=== PATIENT | male | born 1965 | race Asian ===

== ENCOUNTER 2019-08-26 16:20 | Emergency (ER) | payer OTHER ==
[~2019-08-26] VITALS: Ht 175.3 cm; Wt 90.7 kg
[2019-08-26 16:25] VITALS: BP 144/88; TEMP 98.1
[2019-08-26 17:02] LABS: PLATELET COUNT 174 K/uL (142-355)
[2019-08-26 17:23] LABS: POTASSIUM 4.6 mmol/L (3.6-5.2)
[2019-08-26] MEDS ORDERED: TAMSULOSIN0.4 MG PO (17:24)
[2019-08-26] MEDS ORDERED: ESCITALOPRAM10 MG PO (17:24)
[2019-08-26] MEDS ORDERED: DIVALPROEX500 M1 PO (17:33)
[2019-08-26] MEDS ORDERED: RISP1TAB PO (17:34)
[2019-08-26] MEDS ORDERED: CREON24000 UNT PO (17:36)
[2019-08-26] MEDS ORDERED: LITH300C3 PO (17:38)
[2019-08-26] MEDS ORDERED: DONEPEZIL HYDRO10 M1 PO (17:39)
[2019-08-26] MEDS ORDERED: HALO5INJ3 IM (17:40)
== END 2019-08-26 17:00 | disposition other institution (70) ==
LOC: ED 16:28
PROVIDERS: Emergency Medicine
DX: Z00.8 Encounter for other general examination (principal); J18.9 Pneumonia, unspecified organism; J98.11 Atelectasis
CPT/HCPCS: 80053; 81000; 85027; 93005; 99285

== ENCOUNTER 2021-01-26 23:05 | Emergency (ER) | payer OTHER ==
[~2021-01-26] VITALS: Ht 180.3 cm; Wt 85.3 kg
[2021-01-26 23:05] VITALS: TEMP 98.2
[~2021-01-26 23:05] MED LIST: CHOL100034 PO; CREON24000 UNT PO; DIVA250T2 PO; DIVA500T2 PO; DIVALPROEX500 M1 PO; DONEPEZIL HYDRO10 M1 PO; ESCI10TA PO; ESCITALOPRAM10 MG PO; HALO5INJ3 IM; LITH300C3 PO; RISP1TAB PO; SCOP1.5D TOP; TAMSULOSIN0.4 MG PO
[2021-01-26 23:50] LABS: PLATELET COUNT 138 K/uL (142-355)
[2021-01-26 23:53] LABS: POTASSIUM 4.2 mmol/L (3.6-5.2)
[2021-01-27 00:07] VITALS: BP 132/84
[2021-01-27] MEDS ORDERED: DEPAKOTE DR PO ×3 (02:08→02:11)
[2021-01-27] MEDS ORDERED: RISPERDAL3 MG PO (02:15)
[2021-01-27] MEDS ORDERED: HALO5INJ3 IM (02:16)
[2021-01-27] MEDS ORDERED: ESCI10TA PO (02:20)
[2021-02-02] MEDS ORDERED: OLANZAPINE10 MG PO (09:16)
[2021-02-02] MEDS ORDERED: ESCI10TA PO (09:16)
[2021-02-02] MEDS ORDERED: DIVALPROEX500 MG PO (09:17)
[2021-02-02] MEDS ORDERED: DIVA250T PO (09:17)
== END 2021-01-27 00:07 | disposition other institution (70) ==
LOC: ED 23:05
PROVIDERS: Family Medicine
DX: F03.91 Unspecified dementia, unspecified severity, with behavioral disturbance (principal); Z11.59 Encounter for screening for other viral diseases; Z04.6 Encounter for general psychiatric examination, requested by authority
CPT/HCPCS: 36415; 80053; 81000; 85027; 87635; 93005; 99283; U0003